=== PATIENT | female | born 1980 | race Caucasian/White ===

== ENCOUNTER 2023-03-02 16:57 | Inpatient (IN) | payer OTHER ==
[2023-03-02 18:07] VITALS: BMI 18.0
[2023-03-02] MEDS ORDERED: LORazepam 1 MG TABLET PO PRN (21:13)
[2023-03-02] MEDS ORDERED: DICYCLOMINE HCL 10 MG CAPSULE PO PRN (21:13)
[2023-03-02] MEDS ORDERED: BISMUTH SUBSALICYLATE 524 MG/30 ML PO PRN (21:13)
[2023-03-02] MEDS ORDERED: POLYETHYLENE GLYCOL (HEALTHYLAX) 3350 17 GM PACKET PO PRN (21:13)
[2023-03-02] MEDS ORDERED: NALOXONE HCL (KLOXXADO) 8 MG SPRAY NS PRN (21:13)
[2023-03-02] MEDS ORDERED: guaiFENesin 600 MG TABLET.ER (FP) PO PRN (21:13)
[2023-03-02] MEDS ORDERED: NALOXONE HCL 0.4 MG/ML VIAL IM PRN (21:13)
[2023-03-02] MEDS ORDERED: IBUPROFEN 400 MG TABLET (FP) PO PRN (21:13)
[2023-03-02] MEDS ORDERED: BENZONATATE 200 MG CAPSULE PO PRN (21:13)
[2023-03-02] MEDS ORDERED: MAG HYDROX/AL HYDROX/SIMETH 30 ML UNIT-DOSE CUP PO PRN (21:13)
[2023-03-02] MEDS ORDERED: IBUPROFEN 600 MG TABLET (FP) PO PRN (21:13)
[2023-03-02] MEDS ORDERED: BENZOCAINE/MENTHOL (CHLORASEPTIC ) LOZENGE MM PRN (21:13)
[2023-03-02] MEDS ORDERED: ACETAMINOPHEN 325 MG TABLET (FP) PO PRN (21:13)
[2023-03-02] MEDS ORDERED: ONDANSETRON *ODT* 4 MG TABLET SL PRN (21:13)
[2023-03-02] MEDS ORDERED: MAGNESIUM HYDROX 2400MG/30ML ORAL SUSPENSION 30 ML CUP PO PRN (21:13)
[2023-03-02] MEDS ORDERED: LOPERAMIDE HCL 2 MG CAPSULE PO PRN (21:13)
[2023-03-02] MEDS: MELATONIN 5 MG TABLETS PO SCH (22:57)
[2023-03-02] MEDS: LORazepam 2 MG TABLET PO SCH (22:57)
[2023-03-02] MEDS: THIAMINE HCL 100 MG TABLET (FP) PO SCH (22:57)
[2023-03-03] MEDS: LORazepam 2 MG TABLET PO SCH ×4 (05:36→22:45)
[2023-03-03] MEDS: PRENATAL VITAMINS W/ FOLIC ACID TABLET (FP) PO SCH (10:07)
[2023-03-03] MEDS: ALBUTEROL SO4 HFA INHALER IH PRN ×2 (10:11→22:47)
[2023-03-03] MEDS: METHOCARBAMOL 500 MG TABLET PO PRN ×2 (17:14→22:46)
[2023-03-03] MEDS: hydrOXYzine PAMOATE 25 MG CAPSULE (FP) PO PRN (17:14)
[2023-03-03] MEDS: MELATONIN 5 MG TABLETS PO SCH (22:45)
[2023-03-03] MEDS: THIAMINE HCL 100 MG TABLET (FP) PO SCH (22:45)
[2023-03-04] MEDS: LORazepam 1 MG TABLET PO SCH ×4 (05:50→22:09)
[2023-03-04] MEDS: PRENATAL VITAMINS W/ FOLIC ACID TABLET (FP) PO SCH (10:26)
[2023-03-04] MEDS: METHOCARBAMOL 500 MG TABLET PO PRN (17:01)
[2023-03-04] MEDS: hydrOXYzine PAMOATE 25 MG CAPSULE (FP) PO PRN (17:01)
[2023-03-04] MEDS: THIAMINE HCL 100 MG TABLET (FP) PO SCH (22:09)
[2023-03-04] MEDS: MELATONIN 5 MG TABLETS PO SCH (22:09)
[2023-03-05] MEDS ORDERED: LORazepam 0.5 MG TABLET PO PRN
[2023-03-05] MEDS: LORazepam 0.5 MG TABLET PO SCH ×4 (05:54→23:34)
[2023-03-05] MEDS: PRENATAL VITAMINS W/ FOLIC ACID TABLET (FP) PO SCH (10:33)
[2023-03-05 11:08] LABS: HEMATOCRIT 38.8 % (32.4-45.2); MCH 27.1 pg (25.7-33.7); MCHC 33.5 g/dl (32.0-36.0); MEAN CELL VOLUME 80.9 fl (80-96); MEAN PLT VOLUME 7.3 fl (7.5-11.1); PLATELET COUNT 441 10^3/uL (134-434); RDW 14.7 % (11.6-15.6); WHITE BLOOD COUNT 6.6 K/mm3 (4.0-10.0)
[2023-03-05 11:13] LABS: ALBUMIN 3.8 g/dl (3.4-5.0); BLOOD UREA NITROGEN 13.2 mg/dL (7-18); CALCIUM 9.4 mg/dL (8.5-10.1)
[2023-03-05 11:18] LABS: BILIRUBIN,TOTAL 0.3 mg/dL (0.2-1); TOT PROT 8.5 g/dl (6.4-8.2)
[2023-03-05 11:23] LABS: CREATININE 0.8 mg/dL (0.55-1.3)
[2023-03-05] MEDS: LIDOCAINE 5% TOPICAL PATCH TP SCH (14:42)
[2023-03-05] MEDS ORDERED: LIDOCAINE PATCH REMOVAL MC SCH (22:00)
[2023-03-05] MEDS: MELATONIN 5 MG TABLETS PO SCH (22:30)
[2023-03-05] MEDS: THIAMINE HCL 100 MG TABLET (FP) PO SCH (22:31)
[2023-03-06] MEDS ORDERED: LORazepam 0.5 MG TABLET PO ONE (05:00)
[2023-03-06 09:43] VITALS: BP 106/61; PULSE 91; RESP 18; TEMP 97.3
[2023-03-06] MEDS: LIDOCAINE 5% TOPICAL PATCH TP SCH (10:04)
[2023-03-06] MEDS: PRENATAL VITAMINS W/ FOLIC ACID TABLET (FP) PO SCH (10:04)
== END 2023-03-06 11:01 | disposition home or self-care (01) | DRG 773 ==
LOC: YASAS 16:57 → Y6N 21:33
PROVIDERS: ADMIT Allergy & Immunology; ATTEND Allergy & Immunology
PROC: HZ2ZZZZ Detoxification Services for Substance Abuse Treatment (ICD-10-PCS; principal; 2023-03-02)
DX: F11.23 Opioid dependence with withdrawal (principal); F13.230 Sedative, hypnotic or anxiolytic dependence with withdrawal, uncomplicated; F14.20 Cocaine dependence, uncomplicated; F17.210 Nicotine dependence, cigarettes, uncomplicated; F19.94 Other psychoactive substance use, unspecified with psychoactive substance-induced mood disorder; J45.20 Mild intermittent asthma, uncomplicated; R63.4 Abnormal weight loss; Z86.11 Personal history of tuberculosis; Z86.69 Personal history of other diseases of the nervous system and sense organs; Z56.0 Unemployment, unspecified; Z59.00 Homelessness unspecified
CPT/HCPCS: 36415; 71045-TC-FY; 80053; 81025; 85027; 86780; 87635; 87811